=== PATIENT | female | born 1980 | race Caucasian/White ===

== ENCOUNTER 2018-09-15 18:44 | Observation (INO) | payer BC ==
[2018-09-15 18:50] VITALS: BMI 29.5
--- NOTE | 2018-09-15 19:46 | ED PDOC ---
Arrival/HPI - General Chief Complaint: Dizziness/Lightheaded Time Seen by Provider: 09/15/18 19:14 - History of Present Illness Narrative History of Present Illness (Text): 09/15/18 19:40 37 f with hx breast cancer (tx with double mastectomy and chemo currently) presents to the Ed with chief complaint of dizziness, recurrent for the past two days, described as lightheaded as if "she is going to pass out", worst episode tonight at approx 630. Patient reports her appetite has been poor the past several however she ate a decent amount today. Patient reports a "heaviness in her chest" the past several days, localized to chest, persistent and still pre sent at this time, associated with shortness of breath. No diaphoresis, no nausea, no vomiting, no abdominal pain, no syncope. Patient reports a "migraine" headache the past few days but is absent at this time. Past Medical History - Cardiac Hx Cardiac Disorders: No - Pulmonary Hx Respiratory Disorders: No - Neurological Hx Migraine: Yes - HEENT Hx HEENT Disorder: No - Renal Hx Renal Disorder: No - Endocrine/Metabolic Hx Endocrine Disorders: No - Hematological/Oncological Hx Cancer: Yes (Breast) - Integumentary Hx Dermatological Disorder: No - Musculoskeletal/Rheumatological Hx Musculoskeletal Disorders: No - Gastrointestinal Hx Gastrointestinal Disorders: No - Genitourinary/Gynecological Hx Genitourinary Disorders: No - Psychiatric Hx Psychophysiologic Disorder: No Hx Substance Use: No - Surgical History Hx Mastectomy: Yes (B/L) - Anesthesia Hx Anesthesia: No Family/Social History Family/Social History: No Known Family HX Smoking Status: Never Smoked Hx Alcohol Use: No Hx Substance Use: No Allergies/Home Meds Allergies/Adverse Reactions: Allergies No Known Allergies Allergy (Verified 09/15/18 19:01) Home Medications: Home Meds Medication Instructions Recorded Confirmed Rizatriptan Benzoate [Maxalt] 10 mg PO ONCE PRN 12/07/14 12/07/14 Review of Systems - Physician Review All systems were reviewed & negative as marked: Yes Physical Exam - Physical Exam Narrative Physical Exam (Text): 09/15/18 19:46 Gen: VS reviewed, alert, well developed, well nourished, nontoxic, mild distress Eye: EOMI, PERRL Neck: no JVD, supple, no adenopathy CV: regular rate, regular rhythm, no rubs,no murmur, S1, S2 Pulm: no distress, clear to auscultation, no wheeze, no rhonchi, breath sounds equal, no rales Abd: soft, nontender, no guarding, no rebound, no rigidity Ext: no edema Skin: good color, no rash, no cyanosis Psych: responds appropriately to questions, normal affect Neuro: oriented x3, CN2-12 intact grossly, motor intact, sensation intact Vital Signs Temp Pulse Resp BP Pulse Ox 09/15/18 18:48 97.6 F 92 H 18 114/75 100 Medical Decision Making ED Course and Treatment: 09/15/18 19:46 Patient with hx breast cancer seen for chest discomfort, dyspnea without respir atory distress. Will workup fpr ACS, get CTA to rule out PE. There is no rub,no JVD, or hypotension that would suggest a large pericardial effusion clinically but it is on the differential in this patient will hx breast cancer. Will likely admit for observation. Pulse ox 100% on RA and is wnl 09/15/18 22:[address] cabrera to the hospitalist service, patient to be admitted for persistent feeling of lightheadedness/near syncope. admit observation. ddx including but not limited arrythmia, cardiac dysfunction in light of chemotherapy 09/15/18 22:47 - RAD Interpretation Narrative RAD Interpretations (Text): 09/15/18 22:[address] --Unremarkable pulmonary embolism protocol CTA of the chest Service Center Representative: Radiologist - EKG Interpretation EKG Interpretation (Text): ekg my read: 1855: nsr at 83 bpm, nml qrs, nml axis, no acute sttw abn 09/15/18 22:53 Interpreted by ED Physician: Yes Disposition/Present on Arrival - Present on Arrival Any Indicators Present on Arrival: No History of DVT/PE: No History of Uncontrolled Diabetes: No Urinary Catheter: No History of Decub. Ulcer: No History Surgical Site Infection Following: None - Disposition Have Diagnosis and Disposition been Completed?: Yes Diagnosis: Near syncope Disposition: HOSPITALIZED Disposition Time: 22:48 Patient Plan: Observation Patient Problems: Current Active Problems Problem Status Onset Near syncope Acute Condition: STABLE Referrals: FAMILY PROVIDER,NO [Primary Care Provider] - Follow up with primary Forms: Dapper (Mongolian)
[2018-09-15 19:55] LABS: BASO # 0.02 K/mm3 (0.0-2.0); BASO % 0.5 % (0.0-3.0); EOS # 0.1 (0.0-0.7); EOS % 2.6 % (1.5-5.0); HEMOGLOBIN 13.8 g/dL (12.0-16.0); LYMPH % 25.9 % (22.0-35.0); MEAN CELL VOLUME 87.1 fl (80.0-105.0); MEAN CORPUSCULAR HEMOGLOBIN 29.7 pg (25.0-35.0); MEAN CORPUSCULAR HGB CONC 34.1 g/dl (31.0-37.0); MEAN PLATELET VOLUME 9.8 fl (7.0-11.0); MONO # 0.2 (0.1-0.6); MONO % 4.2 % (1.0-6.0); RBC 4.65 10^6/uL (3.5-6.1); RED CELL DISTRIBUTION WIDTH 12.4 % (11.5-14.5); WHITE BLOOD COUNT 3.8 10^3/uL (4.5-11.0)
[2018-09-15] MEDS: Sodium Chloride 0.9% 1,000 ML IV SCH (20:03)
[2018-09-15 20:07] LABS: ALB/GLOB RATIO 1.3 (1.1-1.8); ALBUMIN 4.2 g/dL (3.0-4.8); ALT/SGPT 28 U/L (7-56); AST/SGOT 24 U/L (14-36); BLOOD UREA NITROGEN 17 mg/dL (7-21); CALCIUM 9.2 mg/dL (8.4-10.5); GFR NON-AFRICAN AMERICAN > 60
[2018-09-15 20:08] LABS: INR 1.03; PARTIAL THROMBOPLASTIN TIME 27.3 Seconds (26.9-38.3); PROTHROMBIN TIME 11.4 SECONDS (9.4-12.5)
[2018-09-15 20:18] LABS: TROPONIN I < 0.01 ng/mL
[2018-09-15] MEDS ORDERED: Sodium Chloride 0.9% 1,000 ML IV SCH (23:45)
--- NOTE | 2018-09-16 00:19 | CP.PCM.HP ---
<Angel Santos - Last Filed: 09/16/18 00:28> History of Present Illness - History of Present Illness History of Present Illness: Resident History & Physical for Hospitalist Service Patient is a 37 year old female with past medical history of breast cancer and migraines presenting with chief complaint of dizziness which began two days ago. Patient has had three episodes of dizziness and lightheadedness during which she felt as if the room is spinning around her. She states the episodes typically begin when she is standing, but persist for hours even when she lies supine. Denies any loss of consciousness or trauma. Of note, patient had a double mastectomy 6 weeks ago and was started on a new chemotherapy regimen of gemcitabine and carboplatin. She does admit to nausea due to recent chemo regimen and poor oral intake as a result. Denies sick contacts, fevers, chills, chest pain, shortness of breath, vomiting, abdominal pain, diarrhea, dysuria. PMH: breast cancer s/p chemo and radiation PSH: lumpectomy, double mastectomy SHx: denies alcohol, tobacco, illicit drug use FHx: both mother and father with HTN, HLD Allergies: none PMD: none Oncologists: Dr. Singh and Dr. Crawley at [facility] Present on Admission - Present on Admission Any Indicators Present on Admission: No Review of Systems - Review of Systems All systems: reviewed and no additional remarkable complaints except (as stated in HPI) Past Patient History - Past Social History Smoking Status: Never Smoked - CARDIAC Hx Cardiac Disorders: No - PULMONARY Hx Respiratory Disorders: No - NEUROLOGICAL Hx Migraine: Yes - HEENT Hx HEENT Problems: No - RENAL Hx Chronic Kidney Disease: No - ENDOCRINE/METABOLIC Hx Endocrine Disorders: No - HEMATOLOGICAL/ONCOLOGICAL Hx Cancer: Yes (Breast) - INTEGUMENTARY Hx Dermatological Problems: No - MUSCULOSKELETAL/RHEUMATOLOGICAL Hx Musculoskeletal Disorders: No - GASTROINTESTINAL Hx Gastrointestinal Disorders: No - GENITOURINARY/GYNECOLOGICAL Hx Genitourinary Disorders: No - PSYCHIATRIC Hx Psychophysiologic Disorder: No Hx Substance Use: No - SURGICAL HISTORY Hx Mastectomy: Yes (B/L) - ANESTHESIA Hx Anesthesia: No Meds Allergies/Adverse Reactions: Allergies Allergy/AdvReac Type Severity Reaction Status Date / Time No Known Allergies Allergy Verified 09/15/18 19:01 Physical Exam - Constitutional Appears: Non-toxic, No Acute Distress - Head Exam Head Exam: ATRAUMATIC, NORMOCEPHALIC - Eye Exam Eye Exam: EOMI, Normal appearance, PERRL. absent: Nystagmus - ENT Exam ENT Exam: Mucous Membranes Moist, Normal Exam - Respiratory Exam Respiratory Exam: Clear to Auscultation Bilateral, NORMAL BREATHING PATTERN. absent: Accessory Muscle Use, Decreased Breath Sounds, Rales, Rhonchi, Wheezes, Respiratory Distress - Cardiovascular Exam Cardiovascular Exam: REGULAR RHYTHM, +S1, +S2. absent: Tachycardia, Systolic Murmur - GI/Abdominal Exam GI & Abdominal Exam: Soft. absent: Distended, Firm, Guarding, Rebound, Tenderness - Extremities Exam Extremities exam: Positive for: normal capillary refill, pedal pulses present. Negative for: pedal edema, tenderness - Neurological Exam Neurological exam: Alert, CN II-XII Intact, Oriented x3 - Psychiatric Exam Psychiatric exam: Normal Affect, Normal Mood - Skin Skin Exam: Dry, Intact, Normal Color Results - Vital Signs Recent Vital Signs: Last Vital Signs Temp 97.6 F 09/15/18 18:48 Pulse 71 09/15/18 22:12 Resp 16 09/15/18 22:12 BP 114/66 09/15/18 22:12 Pulse Ox 100 09/15/18 22:12 - Labs Result Diagrams: 09/15/18 19:52 09/15/18 19:52 Labs: Laboratory Results - last 24 hr 09/15/18 09/15/18 09/15/18 19:52 19:52 19:52 WBC 3.8 L RBC 4.65 Hgb 13.8 Hct 40.5 MCV 87.1 MCH 29.7 MCHC 34.1 RDW 12.4 Plt Count 135 MPV 9.8 Neut % (Auto) 66.8 Lymph % (Auto) 25.9 Power % (Auto) 4.2 Eos % (Auto) 2.6 Baso % (Auto) 0.5 Lymph # (Auto) 1.0 L Power # (Auto) 0.2 Eos # (Auto) 0.1 Baso # (Auto) 0.02 Absolute Neuts (auto) 2.52 PT 11.4 INR 1.03 APTT 27.3 Sodium 138 Potassium 4.2 Chloride 101 Carbon Dioxide 30 Anion Gap 12 BUN 17 Creatinine 0.8 Est GFR ( Amer) > 60 Est GFR (Non-Af Amer) > 60 Random Glucose 91 Calcium 9.2 Total Bilirubin 0.2 AST 24 ALT 28 Alkaline Phosphatase 58 Troponin I < 0.01 Total Protein 7.4 Albumin 4.2 Globulin 3.2 Albumin/Globulin Ratio 1.3 Assessment & Plan - Assessment and Plan (Free Text) Assessment: Patient is a 37 year old female with past medical history of breast cancer and migraines presenting with chief complaint of dizziness. Plan: Dizziness - EKG shows NSR - TSH - ECHO - orthostatic vital signs - Meclizine 25 mg PO Q8H - NS @ 150 ccs/hour - Fall precautions Hx breast cancer - continue followup with primary oncologists PPX - SCDs Case reviewed with Dr. Medina <Betito Medina - Last Filed: 09/16/18 01:36> Results - Vital Signs Recent Vital Signs: Last Vital Signs Temp 97.6 F 09/15/18 18:48 Pulse 75 09/16/18 00:26 Resp 16 09/16/18 00:26 BP 101/67 09/16/18 00:26 Pulse Ox 98 09/16/18 00:26 - Labs Result Diagrams: 09/15/18 19:52 09/15/18 19:52 Labs: Laboratory Results - last 24 hr 09/15/18 09/15/18 09/15/18 19:52 19:52 19:52 WBC 3.8 L RBC 4.65 Hgb 13.8 Hct 40.5 MCV 87.1 MCH 29.7 MCHC 34.1 RDW 12.4 Plt Count 135 MPV 9.8 Neut % (Auto) 66.8 Lymph % (Auto) 25.9 Power % (Auto) 4.2 Eos % (Auto) 2.6 Baso % (Auto) 0.5 Lymph # (Auto) 1.0 L Power # (Auto) 0.2 Eos # (Auto) 0.1 Baso # (Auto) 0.02 Absolute Neuts (auto) 2.52 PT 11.4 INR 1.03 APTT 27.3 Sodium 138 Potassium 4.2 Chloride 101 Carbon Dioxide 30 Anion Gap 12 BUN 17 Creatinine 0.8 Est GFR ( Amer) > 60 Est GFR (Non-Af Amer) > 60 Random Glucose 91 Calcium 9.2 Total Bilirubin 0.2 AST 24 ALT 28 Alkaline Phosphatase 58 Troponin I < 0.01 Total Protein 7.4 Albumin 4.2 Globulin 3.2 Albumin/Globulin Ratio 1.3 TSH 3rd Generation 09/15/18 19:52 WBC RBC Hgb Hct MCV MCH MCHC RDW Plt Count MPV Neut % (Auto) Lymph % (Auto) Power % (Auto) Eos % (Auto) Baso % (Auto) Lymph # (Auto) Power # (Auto) Eos # (Auto) Baso # (Auto) Absolute Neuts (auto) PT INR APTT Sodium Potassium Chloride Carbon Dioxide Anion Gap BUN Creatinine Est GFR ( Amer) Est GFR (Non-Af Amer) Random Glucose Calcium Total Bilirubin AST ALT Alkaline Phosphatase Troponin I Total Protein Albumin Globulin Albumin/Globulin Ratio TSH 3rd Generation 1.58 Attending/Attestation - Attestation I have personally seen and examined this patient.: Yes I have fully participated in the care of the patient.: Yes I have reviewed all pertinent clinical information: Yes Notes (Text): 09/16/18 01:35 Seen and examined. Discussed with resident. A&P as above.
[2018-09-16 06:33] LABS: BASO # 0.01 K/mm3 (0.0-2.0); BASO % 0.3 % (0.0-3.0); EOS # 0.2 (0.0-0.7); EOS % 5.1 % (1.5-5.0); HEMOGLOBIN 12.6 g/dL (12.0-16.0); LYMPH % 27.2 % (22.0-35.0); MEAN CORPUSCULAR HEMOGLOBIN 29.2 pg (25.0-35.0); MEAN CORPUSCULAR HGB CONC 33.5 g/dl (31.0-37.0); MONO # 0.3 (0.1-0.6); MONO % 7.5 % (1.0-6.0); RBC 4.32 10^6/uL (3.5-6.1); RED CELL DISTRIBUTION WIDTH 12.5 % (11.5-14.5); WHITE BLOOD COUNT 3.7 10^3/uL (4.5-11.0)
[2018-09-16 06:38] LABS: ALB/GLOB RATIO 1.2 (1.1-1.8); ALBUMIN 3.5 g/dL (3.0-4.8); ALT/SGPT 26 U/L (7-56); AST/SGOT 20 U/L (14-36); BLOOD UREA NITROGEN 15 mg/dL (7-21); CALCIUM 8.8 mg/dL (8.4-10.5); GFR NON-AFRICAN AMERICAN > 60
[2018-09-16 08:26] VITALS: RESP 18; TEMP 98.7
[2018-09-16] MEDS: Sodium Chloride 0.9% 1,000 ML IV SCH (08:29)
--- NOTE | 2018-09-16 08:50 | CT ---
Date of service: 09/15/2018 PROCEDURE: CT Chest with contrast (Pulmonary Angiogram) HISTORY: pulmonary embolism COMPARISON: None available. TECHNIQUE: Axial computed tomography images were obtained of the chest in the pulmonary arterial phase of enhancement. Coronal and sagittal reformatted images were created and reviewed. Intravenous contrast dose: Radiation dose: Total exam DLP = 408.86 mGy-cm. This CT exam was performed using one or more of the following dose reduction techniques: Automated exposure control, adjustment of the mA and/or kV according to patient size, and/or use of iterative reconstruction technique. FINDINGS: PULMONARY ARTERIES: Unremarkable. No pulmonary embolism. AORTA: No acute findings. No thoracic aortic aneurysm. No aortic atherosclerotic calcification or mural plaque present. LUNGS: 7 millimeter nodule in the left lower lobe, nonspecific. Malignancy not excluded. PLEURAL SPACES: Unremarkable. No effusion or pneumothorax. HEART: Unremarkable. No cardiomegaly. No significant pericardial effusion. LYMPH NODES: No lymphadenopathy. BONES, CHEST WALL: Unremarkable. No fracture or destructive lesion OTHER FINDINGS: Right breast implant. Postsurgical changes and fluid in the left chest wall. Status post left axillary lymphadenectomy. IMPRESSION: 7 millimeter nodule in the left lower lobe, nonspecific. Malignancy not excluded. No pulmonary embolus.
[2018-09-16 09:09] VITALS: BP 101/53; PULSE 93; O2SAT 99
--- NOTE | 2018-09-16 13:58 | CP.PCM.DIS ---
<Gonzalez Tucker - Last Filed: 09/16/18 13:43> Provider - Provider Date of Admission: 09/15/18 22:48 Attending physician: Shant Velarde MD Primary care physician: NO FAMILY PROVIDER Time Spent in preparation of Discharge (in minutes): 35 Hospital Course - Lab Results Lab Results: Most Recent Lab Values WBC 3.7 10^3/uL (4.5-11.0) L 09/16/18 05:55 RBC 4.32 10^6/uL (3.5-6.1) 09/16/18 05:55 Hgb 12.6 g/dL (12.0-16.0) 09/16/18 05:55 Hct 37.6 % (36.0-48.0) 09/16/18 05:55 MCV 87.0 fl (80.0-105.0) 09/16/18 05:55 MCH 29.2 pg (25.0-35.0) 09/16/18 05:55 MCHC 33.5 g/dl (31.0-37.0) 09/16/18 05:55 RDW 12.5 % (11.5-14.5) 09/16/18 05:55 Plt Count 128 10^3/uL (120.0-450.0) 09/16/18 05:55 MPV 10.0 fl (7.0-11.0) 09/16/18 05:55 Neut % (Auto) 59.9 % (50.0-68.0) 09/16/18 05:55 Lymph % (Auto) 27.2 % (22.0-35.0) 09/16/18 05:55 [place] % (Auto) 7.5 % (1.0-6.0) H 09/16/18 05:55 Eos % (Auto) 5.1 % (1.5-5.0) H 09/16/18 05:55 Baso % (Auto) 0.3 % (0.0-3.0) 09/16/18 05:55 Lymph # (Auto) 1.0 (1.2-3.4) L 09/16/18 05:55 [place] # (Auto) 0.3 (0.1-0.6) 09/16/18 05:55 Eos # (Auto) 0.2 (0.0-0.7) 09/16/18 05:55 Baso # (Auto) 0.01 K/mm3 (0.0-2.0) 09/16/18 05:55 Absolute Neuts (auto) 2.23 (1.4-6.5) 09/16/18 05:55 PT 11.4 SECONDS (9.4-12.5) 09/15/18 19:52 INR 1.03 09/15/18 19:52 APTT 27.3 Seconds (26.9-38.3) 09/15/18 19:52 Sodium 139 mmol/L (132-148) 09/16/18 05:55 Potassium 4.3 mmol/L (3.6-5.0) 09/16/18 05:55 Chloride 105 mmol/L (98-107) 09/16/18 05:55 Carbon Dioxide 28 mmol/L (21-33) 09/16/18 05:55 Anion Gap 10 (10-20) 09/16/18 05:55 BUN 15 mg/dL (7-21) 09/16/18 05:55 Creatinine 0.8 mg/dl (0.7-1.2) 09/16/18 05:55 Est GFR ( Amer) > 60 09/16/18 05:55 Est GFR (Non-Af Amer) > 60 09/16/18 05:55 Random Glucose 89 mg/dL (70-110) 09/16/18 05:55 Calcium 8.8 mg/dL (8.4-10.5) 09/16/18 05:55 Phosphorus 3.5 mg/dL (2.5-4.5) 09/16/18 05:55 Magnesium 1.9 mg/dL (1.7-2.2) 09/16/18 05:55 Total Bilirubin 0.1 mg/dL (0.2-1.3) L 09/16/18 05:55 AST 20 U/L (14-36) 09/16/18 05:55 ALT 26 U/L (7-56) 09/16/18 05:55 Alkaline Phosphatase 54 U/L (38-126) 09/16/18 05:55 Troponin I < 0.01 ng/mL 09/15/18 19:52 Total Protein 6.4 g/dL (5.8-8.3) 09/16/18 05:55 Albumin 3.5 g/dL (3.0-4.8) 09/16/18 05:55 Globulin 3.0 gm/dL 09/16/18 05:55 Albumin/Globulin Ratio 1.2 (1.1-1.8) 09/16/18 05:55 TSH 3rd Generation 1.58 mIU/mL (0.46-4.68) 09/15/18 19:52 Physical Exam - Constitutional Appears: Non-toxic, No Acute Distress - Head Exam Head Exam: ATRAUMATIC, NORMOCEPHALIC - Eye Exam Eye Exam: EOMI, Normal appearance, PERRL. absent: Nystagmus - ENT Exam ENT Exam: Mucous Membranes Moist, Normal Exam - Respiratory Exam Respiratory Exam: Clear to Auscultation Bilateral, NORMAL BREATHING PATTERN. absent: Accessory Muscle Use, Decreased Breath Sounds, Rhonchi, Wheezes, Respiratory Distress - Cardiovascular Exam Cardiovascular Exam: REGULAR RHYTHM, +S1, +S2. absent: Tachycardia - GI/Abdominal Exam GI & Abdominal Exam: Soft. absent: Distended, Firm, Guarding, Rebound, Tenderness - Extremities Exam Extremities exam: Positive for: normal capillary refill, pedal pulses present. Negative for: pedal edema, tenderness - Neurological Exam Neurological exam: Alert, CN II-XII Intact, Oriented x3 - Skin Skin Exam: Dry, Intact, Normal Color - Hospital Course Hospital Course: Upon admission, 37 year old female with past medical history of breast cancer and migraines presenting with chief complaint of dizziness which began two days ago. Patient has had three episodes of dizziness and lightheadedness during which she felt as if the room is spinning around her. She states the episodes typically begin when she is standing, but persist for hours even when she lies supine. Denies any loss of consciousness or trauma. Of note, patient had a double mastectomy 6 weeks ago and was started on a new chemotherapy regimen of gemcitabine and carboplatin. She does admit to nausea due to recent chemo regimen and poor oral intake as a result. During hospital course, EKG showed NSR, TSH was WNL and orthostatics were unremarkable. CTA was ordered to rule out PE and came back negative PE but did show 7mm nodule in the left lower lobe and patient was given copy of report and instructed to follow up with oncologist which patient agreed. Patient had echo done and preliminary read was unremarkable with no effusion noted. She was started on fluids as well as meclixine 25mg with improvement in symptoms overnight. Patient was able to tolerate food without complaints and stated she felt comfortable going home and all her questions were answered to her satisfaction. She will follow up with her oncologist on Thursday, September 20, 2018. Discharge Plan - Discharge Medications Prescriptions: Ondansetron [Zofran] 8 mg PO Q8H #15 tab - Follow Up Plan Condition: STABLE Disposition: HOME/ ROUTINE Instructions: Syncope (Fainting) (DC), Near Fainting (DC) Additional Instructions: Please follow up with your oncologist/regulatory compliance coordinator within 3-5 days of discharge. As per our discussion, you have an appointment scheduled for Thursday09/20/2018 at [facility] already. Please advance your diet as tolerated. Please take zofran as need for your nausea. Please drink water and stay hydrated. Please continue taking your medications as previously taken. As per our discussion, you do not need any refills at this time. We have provided you with a copy of your CT chest scan, please bring the results of left lung nodule with you to your appointment on Thursday09/20/18. Please return to the ED for any new or worsening symptoms. Referrals: [facility] [place] FAMILY PROVIDER,NO [Primary Care Provider] - <Shant Velarde - Last Filed: 09/16/18 17:44> Provider - Provider Date of Admission: 09/15/18 22:48 Attending physician: Shant Velarde MD Primary care physician: NO FAMILY PROVIDER Hospital Course - Lab Results Lab Results: Most Recent Lab Values WBC 3.7 10^3/uL (4.5-11.0) L 09/16/18 05:55 RBC 4.32 10^6/uL (3.5-6.1) 09/16/18 05:55 Hgb 12.6 g/dL (12.0-16.0) 09/16/18 05:55 Hct 37.6 % (36.0-48.0) 09/16/18 05:55 MCV 87.0 fl (80.0-105.0) 09/16/18 05:55 MCH 29.2 pg (25.0-35.0) 09/16/18 05:55 MCHC 33.5 g/dl (31.0-37.0) 09/16/18 05:55 RDW 12.5 % (11.5-14.5) 09/16/18 05:55 Plt Count 128 10^3/uL (120.0-450.0) 09/16/18 05:55 MPV 10.0 fl (7.0-11.0) 09/16/18 05:55 Neut % (Auto) 59.9 % (50.0-68.0) 09/16/18 05:55 Lymph % (Auto) 27.2 % (22.0-35.0) 09/16/18 05:55 [place] % (Auto) 7.5 % (1.0-6.0) H 09/16/18 05:55 Eos % (Auto) 5.1 % (1.5-5.0) H 09/16/18 05:55 Baso % (Auto) 0.3 % (0.0-3.0) 09/16/18 05:55 Lymph # (Auto) 1.0 (1.2-3.4) L 09/16/18 05:55 [place] # (Auto) 0.3 (0.1-0.6) 09/16/18 05:55 Eos # (Auto) 0.2 (0.0-0.7) 09/16/18 05:55 Baso # (Auto) 0.01 K/mm3 (0.0-2.0) 09/16/18 05:55 Absolute Neuts (auto) 2.23 (1.4-6.5) 09/16/18 05:55 PT 11.4 SECONDS (9.4-12.5) 09/15/18 19:52 INR 1.03 09/15/18 19:52 APTT 27.3 Seconds (26.9-38.3) 09/15/18 19:52 Sodium 139 mmol/L (132-148) 09/16/18 05:55 Potassium 4.3 mmol/L (3.6-5.0) 09/16/18 05:55 Chloride 105 mmol/L (98-107) 09/16/18 05:55 Carbon Dioxide 28 mmol/L (21-33) 09/16/18 05:55 Anion Gap 10 (10-20) 09/16/18 05:55 BUN 15 mg/dL (7-21) 09/16/18 05:55 Creatinine 0.8 mg/dl (0.7-1.2) 09/16/18 05:55 Est GFR ( Amer) > 60 09/16/18 05:55 Est GFR (Non-Af Amer) > 60 09/16/18 05:55 Random Glucose 89 mg/dL (70-110) 09/16/18 05:55 Calcium 8.8 mg/dL (8.4-10.5) 09/16/18 05:55 Phosphorus 3.5 mg/dL (2.5-4.5) 09/16/18 05:55 Magnesium 1.9 mg/dL (1.7-2.2) 09/16/18 05:55 Total Bilirubin 0.1 mg/dL (0.2-1.3) L 09/16/18 05:55 AST 20 U/L (14-36) 09/16/18 05:55 ALT 26 U/L (7-56) 09/16/18 05:55 Alkaline Phosphatase 54 U/L (38-126) 09/16/18 05:55 Troponin I < 0.01 ng/mL 09/15/18 19:52 Total Protein 6.4 g/dL (5.8-8.3) 09/16/18 05:55 Albumin 3.5 g/dL (3.0-4.8) 09/16/18 05:55 Globulin 3.0 gm/dL 09/16/18 05:55 Albumin/Globulin Ratio 1.2 (1.1-1.8) 09/16/18 05:55 TSH 3rd Generation 1.58 mIU/mL (0.46-4.68) 09/15/18 19:52 Attending/Attestation - Attestation I have personally seen and examined this patient.: Yes I have fully participated in the care of the patient.: Yes I have reviewed all pertinent clinical information, including history, physical exam and plan: Yes Notes (Text): 09/16/18 17:40 Attending note; Patient seen and examined with resident. Patient denies any dizziness. Denies any chest pain, shortness of breath. Nausea, vomiting improved. Eating diet well. Denies any fevers, chills. Patient is a 37 year old female with past medical history of breast cancer and migraines presenting with chief complaint of dizziness. 1. Dizziness; secondary to poor p.o. intake and dehydration. Patient had chemotherapy last week with gemcitabine and cisplatin. This is the first session. Status post bilateral mastectomy in June. Initial diagnosis of breast cancer was in 2017 in the left breast with chemotherapy, lumpectomy and radiation therapy. Currently with recurrent tumor. Getting treatment at [facility]. 2.Dehydration; Secondary to poor p.o. intake post new chemotherapy. Advised to continue Zofran. Advised to increase p.o. liquid intake. Currently tolerating diet. CT angios negative for PE. Echocardiogram preliminary showed ejection fraction of 50% no effusion noted. Patient will be discharged home today. Follow-up with oncology in [facility]. 09/16/18 17:42
--- NOTE | 2018-09-16 17:01 | CARD ---
APPROVED REPORT Date of service: 09/15/2018 EKG Measurement Heart [id number] <Conclusion> Normal sinus rhythm Normal Electrocardiogram
--- NOTE | 2018-09-16 17:52 | CARD ---
APPROVED REPORT Date of service: 09/16/2018 EXAM: Two-dimensional and M-mode echocardiogram with Doppler and color Doppler. INDICATION NEAR SYNCOPE 2D DIMENSIONS Left Atrium (2D)3.4 (1.6-4.0cm)IVSd0.9 (0.7-1.1cm) LVDd4.5 (3.9-5.9cm)PWd1.0 (0.7-1.1cm) LVDs3.4 (2.5-4.0cm)FS (%) 25.1 % LVEF (%)49.8 (>50%) M-Mode DIMENSIONS Aortic Root2.60 (2.2-3.7cm)Aortic Cusp Exc.1.70 (1.5-2.0cm) Aortic Valve AoV Peak Pzogoxza74.7cm/Augustin Peak GR.4mmHg Mitral Valve E/A ratio0.0 TDI E/Lateral E'0.0E/Medial E'0.0 Tricuspid Valve TR Peak [id number] [id number] Peak Gr.14mmHg [id number] LEFT VENTRICLE The left ventricle is normal size. There is normal left ventricular wall thickness. The systolic function is mildly impaired. Transmitral Doppler flow pattern is abnormal. No left ventricle thrombus noted on this study. RIGHT VENTRICLE The right ventricle is normal size. There is normal right ventricular wall thickness. The right ventricular systolic function is normal. ATRIA The left atrium size is normal. The right atrium size is normal. AORTIC VALVE The aortic valve is normal in structure. No aortic regurgitation is present. There is no aortic valvular stenosis. MITRAL VALVE The mitral valve is normal in structure. There is no mitral valve regurgitation noted. There is no mitral valve stenosis. TRICUSPID VALVE The tricuspid valve is normal in structure. There is trace to mild tricuspid regurgitation. There is no tricuspid valve stenosis. PULMONIC VALVE The pulmonary valve is normal in structure. There is no pulmonic valvular regurgitation. GREAT VESSELS The aortic root is normal in size. The IVC is normal in size and collapses >50% with inspiration. <Conclusion> There is normal left ventricular wall thickness. The systolic function is mildly impaired. Septal hypokinesis Transmitral Doppler flow pattern is abnormal. There is trace to mild tricuspid regurgitation.
== END 2018-09-16 15:15 | disposition home or self-care (01) ==
LOC: ED 18:44 → ERH 22:48 → INTOOBSV 22:48 → ERH 09-16 09:00 → 3RSO 09-16 09:37
PROVIDERS: ADMIT Internal Medicine; ATTEND Internal Medicine
DX: E86.0 Dehydration (principal); R42 Dizziness and giddiness; R11.2 Nausea with vomiting, unspecified; R55 Syncope and collapse; G43.909 Migraine, unspecified, not intractable, without status migrainosus; Z85.3 Personal history of malignant neoplasm of breast; Z90.13 Acquired absence of bilateral breasts and nipples; Z92.3 Personal history of irradiation; Z92.21 Personal history of antineoplastic chemotherapy
CPT/HCPCS: 71275; 80053; 81025; 83735; 84100; 84443; 84484; 85025; 85610; 85730; 93005; 93306; 96360; 96361; 99285; G0378; J7030; Q9967

== ENCOUNTER 2018-11-12 15:31 | Emergency (ER) | payer BC ==
--- NOTE | 2018-11-12 15:43 | ED PDOC ---
Arrival/HPI - General Historian: Patient - History of Present Illness Narrative History of Present Illness (Text): 11/12/18 15:44 Patient is a 38 yo female with a history of breast cancer and migraines who presents with finger pain. Patient states that she was cleaning the counter a couple of days ago when she jammed her left 4th digit. Since then, the tip of her finger has become red and swollen. The 4th digit has some numbness and tingling. She describes shooting pain up the arm to the elbow. She is able to move her finger but not full ROM due to pain. There is no laceration or bleeding. Patient states that she is primarily concerned because she had her left axillary lymph nodes removed due to her cancer. Symptom Onset: Sudden Quality: Throbbing <Constance Seo - Last Filed: 11/12/18 17:06> <Dirk Oviedo - Last Filed: 11/12/18 17:55> - General Chief Complaint: Trauma Time Seen by Provider: 11/12/18 15:42 Past Medical History - Provider Review Nursing Documentation Reviewed: Yes - Past History Past History: Non-Contributing - Cardiac Hx Cardiac Disorders: No - Pulmonary Hx Respiratory Disorders: No - Neurological Hx Neurological Disorder: Yes Hx Migraine: Yes - HEENT Hx HEENT Disorder: No - Renal Hx Renal Disorder: No - Endocrine/Metabolic Hx Endocrine Disorders: No - Hematological/Oncological Hx Cancer: Yes (LEFT BREAST) Hx Chemotherapy: Yes - Integumentary Hx Dermatological Disorder: No - Musculoskeletal/Rheumatological Hx Musculoskeletal Disorders: No - Gastrointestinal Hx Gastrointestinal Disorders: No - Genitourinary/Gynecological Hx Genitourinary Disorders: No - Psychiatric Hx Psychophysiologic Disorder: No Hx Substance Use: No - Surgical History Other/Comment: 07/15 LUMPECTOMY LEFT BREAST. 07/17 BILATERAL MASTECTOMY WITH SPACER INSERTED RIGHT BREAST - Anesthesia Hx Anesthesia: No <Constance Seo - Last Filed: 11/12/18 17:06> Family/Social History - Physician Review Nursing Documentation Reviewed: Yes Family/Social History: Unknown Family HX Smoking Status: Never Smoked Hx Alcohol Use: No Hx Substance Use: No <Constance Seo - Last Filed: 11/12/18 17:06> Allergies/Home Meds <Constance Seo - Last Filed: 11/12/18 17:06> <Ivelisse,Dirk - Last Filed: 11/12/18 17:55> Allergies/Adverse Reactions: Allergies No Known Allergies Allergy (Verified 09/15/18 19:01) Home Medications: Home Meds Medication Instructions Recorded Confirmed Rizatriptan Benzoate [Maxalt] 10 mg PO ONCE PRN 12/07/14 09/16/18 Review of Systems - Review of Systems Constitutional: absent: Fevers Eyes: Normal ENT: Normal Respiratory: absent: SOB, Cough Cardiovascular: absent: Chest Pain, Palpitations Gastrointestinal: absent: Abdominal Pain, Constipation, Diarrhea, Nausea, Vomiting Genitourinary Female: absent: Dysuria, Hematuria Musculoskeletal: Joint Swelling (left 4th digit) Skin: absent: Skin Lesions, Laceration Neurological: absent: Headache, Dizziness Endocrine: absent: Diaphoresis Hemo/Lymphatic: absent: Adenopathy, Easy Bleeding, Easy Bruising <Constance Seo - Last Filed: 11/12/18 17:06> Physical Exam Vital Signs Reviewed: Yes Temperature: Afebrile Blood Pressure: Normal Pulse: Regular Respiratory Rate: Normal Appearance: Positive for: Well-Appearing, Non-Toxic, Comfortable Pain Distress: None Mental Status: Positive for: Alert and Oriented X 3 - Systems Exam Head: Present: Atraumatic, Normocephalic Pupils: Present: PERRL Extroacular Muscles: Present: EOMI Conjunctiva: Present: Normal Mouth: Present: Moist Mucous Membranes Respiratory/Chest: Present: Clear to Auscultation, Good Air Exchange Cardiovascular: Present: Regular Rate and Rhythm, Normal S1, S2 Upper Extremity: Present: Neurovascularly Intact, Other (left 4th digit distal erythema, ecchymosis, and edema, tender to palpation, radial pulse intact, no lesion/bleeding) Neurological: Present: GCS=15, CN II-XII Intact, Speech Normal Skin: No: Laceration Psychiatric: Present: Alert, Oriented x 3, Normal Insight, Normal Concentration <Constance Seo - Last Filed: 11/12/18 17:06> Medical Decision Making ED Course and Treatment: 11/12/18 15:57 Hand XR Motrin Re-evaluation Time: 17:16 Reassessment Condition: Re-examined, Improving,but remains with symptoms - RAD Interpretation Radiology Orders: Left hand XR- no acute fracture - Medication Orders Current Medication Orders: 11/12/18 15:57 Motrin 600 mg PO <Constance Seo - Last Filed: 11/12/18 17:06> ED Course and Treatment: 11/12/18 17:54 Patient Seen with Resident: In agreement with resident note which contains more details about the patient. Patient seen and evaluated with resident. Came up with plan and treatment together. - RAD Interpretation Radiology Orders: 11/12/18 15:57 HAND LEFT 4TH DIGIT (FINGER) [RAD] Stat - Medication Orders Current Medication Orders: Discontinued Medications Ibuprofen (Motrin Tab) 600 mg PO STAT STA Stop: 11/12/18 15:58 Last Admin: 11/12/18 16:10 Dose: 600 mg MAR Pain/Vitals Document 11/12/18 16:10 BB (Rec: 11/12/18 16:10 BB [id number]) Pain Reassessment Is This A Pain ReAssessment? No Sleep Is patient sleeping during reassessment? 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 ALEXA has examined the patient and agrees with the treatment plan. <Dirk Oviedo - Last Filed: 11/12/18 17:55> Disposition/Present on Arrival - Present on Arrival Any Indicators Present on Arrival: No History of DVT/PE: No History of Uncontrolled Diabetes: No Urinary Catheter: No History Surgical Site Infection Following: None - Disposition Have Diagnosis and Disposition been Completed?: Yes Disposition Time: 17:06 Patient Plan: Discharge <Constance Seo - Last Filed: 11/12/18 17:06> <Dirk Oviedo - Last Filed: 11/12/18 17:55> - Disposition Diagnosis: Fingertip contusion Disposition: HOME/ ROUTINE Condition: GOOD Discharge Instructions (ExitCare): Common Finger Injuries (DC) Additional Instructions: Follow-up with you primary care provider within 3-5 days. Follow-up with hand surgeon if no improvement. Take Motrin or Tylenol as needed for pain. Referrals: Alejandro Bo MD [Staff Provider] - Follow up with primary Zayda Pereyra MD [Medical Doctor] - Follow up with primary [facility] [Outside] - Follow up with primary Forms: [email or web address] ([place])
[2018-11-12 15:53] VITALS: BMI 29.2
--- NOTE | 2018-11-12 18:14 | RAD ---
Date of service: 11/12/2018 PROCEDURE: Left ring finger radiographs. HISTORY: Unspecified trauma COMPARISON: None. TECHNIQUE: AP radiograph of the left hand, as well as spot oblique and lateral images of index finger were obtained. 4 views obtained. FINDINGS: LEFT RING FINGER: Left ring finger normal, without fracture of focal lesion. Remainder of the left hand (as seen on the AP view) is grossly unremarkable. JOINTS: Normal. SOFT TISSUES: Normal. OTHER FINDINGS: None. IMPRESSION: No acute findings related to/ accounting for the clinical presentation.
[2018-11-12 18:26] VITALS: RESP 18; TEMP 97.6
[2018-11-12 18:33] VITALS: BP 128/71; PULSE 74; O2SAT 99
== END 2018-11-12 18:00 | disposition home or self-care (01) ==
LOC: ED 15:31
DX: S60.042A Contusion of left ring finger without damage to nail, initial encounter (principal); W23.0XXA Caught, crushed, jammed, or pinched between moving objects, initial encounter; Z85.3 Personal history of malignant neoplasm of breast